=== PATIENT | male | born 1955 | race Caucasian/White ===

== ENCOUNTER 2017-07-04 14:11 | Inpatient (IN) | payer OTHER ==
[~2017-07-04] VITALS: Ht 170.2 cm; Wt 119.0 kg
[~2017-07-04 14:11] MED LIST: ACP20 PO; ALL300 PO; ASPEC81 PO; CLON0.5T3 PO; GLC500 PO; LISI40TA PO; OXGN
[2017-07-04] MEDS ORDERED: NovoLIN-R INSULIN PER UNIT CHARGE IV STA (14:35)
[2017-07-04] MEDS ORDERED: SODIUM CHLORIDE 0.9% 1000ML 1,000 ML, SODIUM CHLORIDE 0.9% 1000ML 1,000 ML IV ONE (14:45)
[2017-07-04 14:50] LABS: URINE APPEARANCE CLEAR (CLEAR); URINE BILIRUBIN NEG (NEG); URINE COLOR YELLOW; URINE NITRITE NEG (NEG); URINE PH 5.5 (4.5-7.5); URINE SPECIFIC GRAVITY 1.029 (1.000-1.030); UROBILINOGEN NEG (NEG); ZZUR CULT IF INDIC CLEAN CATCH NO
[2017-07-04 14:53] LABS: MANUAL MICROSCOPIC REQUIRED? NO; REVIEW REQ? NO
[2017-07-04 15:08] LABS: VEN BLD GAS O2 SATURATION < 60.0 %; VEN BLOOD GAS BASE EXCESS 0.7 mEq/L; VENOUS BLOOD GAS PCO2 47 mmHg (38.0-50.0); VENOUS BLOOD GAS PO2 33 mmHg
[2017-07-04] MEDS ORDERED: PANT40TA PO (15:31)
[2017-07-04] MEDS ORDERED: AMLO-110 PO (15:31)
[2017-07-04] MEDS ORDERED: CHOL100027 PO (15:31)
[2017-07-04] MEDS ORDERED: ALLO300T2 PO (15:31)
[2017-07-04] MEDS ORDERED: METF500T5 PO (15:31)
[2017-07-04] MEDS ORDERED: ATOR-26 PO (15:34)
[2017-07-04] MEDS ORDERED: HYDR25TA4 PO (15:34)
[2017-07-04] MEDS ORDERED: FLUT0.15 NAE (15:34)
[2017-07-04] MEDS ORDERED: IBUP-1050 PO (15:34)
[2017-07-04 15:35] LABS: ALB/GLOB RATIO 0.8 (0.9-2); BETA-HYDROXYBUTYRATE 2.45 mg/dL (0.2-2.81); CALCIUM 9.6 mg/dl (8.5-10.1); MAGNESIUM 1.9 mg/dl (1.8-2.4); POTASSIUM 4.9 mmol/L (3.5-5.1); THYROID STIMULATING HORMONE 1.62 uIu/ml (0.300-4.500)
--- NOTE | 2017-07-04 15:37 | DIAGNOSTIC IMAGING REPORT ---
CHEST 2 VIEWS ROUTINE CLINICAL HISTORY: Left-sided wheezing. Hyperglycemia. COMPARISON STUDY: 07/11/2008 FINDINGS: The cardiac and mediastinal contours are normal. There is no evidence of focal pulmonary consolidation. There is no evidence of failure. No pleural effusions are visualized.[ There is a calcified granuloma within the right upper lobe. There are old left-sided rib deformities. IMPRESSION: No active disease in the chest. Electronically signed by: Yusuf Estrada M.D. 07/04/2017 3:35 PM Dictated Date/Time: 07/04/2017 3:35 PM
[2017-07-04] MEDS ORDERED: INSULIN IV INFUSION PROTOCOL STA (15:56)
[2017-07-04] MEDS ORDERED: SEVERE STRESS LEVEL ONE (16:00)
[2017-07-04] MEDS ORDERED: HHS GOAL RANGE 250-350 mg/dl ONE (16:00)
[2017-07-04] MEDS ORDERED: INSULIN IV INFUSION PROTOCOL SCH (16:15)
--- NOTE | 2017-07-04 16:21 | EMERGENCY ROOM VISIT NOTE ---
History First contact with patient: 14:29 Chief Complaint: HYPERGLYCEMIA Stated Complaint: BLOOD SUGAR OVER 600 Nursing Triage Summary: patient non insulin depentent, taken metfomin but has been drinking and voiding alot. states feels like he has the flu achy tired. has had the shingles shot on the first of the month. blood sugar checked in triage reading hi. at home reading same History of Present Illness The patient is a 62 year old male who presents to the Emergency Room with complaints of generalized body aches, vision changes, and fatigue worsening over the past 3-4 days. The patient has been drinking lots of fluids and urinating excessively. He has a history of diabetes and only takes metformin for this. The patient usually does not check his sugar, but when he went to check it today the glucometer read HIGH. The patient contacted the on-call nurse who referred him to the ER for evaluation. The patient does not report fever or significant recent illness. He did have a shingles immunization about 2 weeks ago in his right arm, and he does have some continued tenderness in this area. The patient has been urinating several times an hour. He does not have other pains. He rates his discomfort an 8/10. He has taken his metformin today. Review of Systems More than 10 systems were reviewed and otherwise negative with the exception of history of present illness. Past Medical/Surgical History History of diabetes Family History No pertinent family history Social History Smoking Status: Former Smoker Marital Status: Current/Historical Medications Scheduled Allopurinol (Zyloprim), 300 MG PO DAILY Amlodipine (Norvasc), 5 MG PO DAILY Atorvastatin (Lipitor), 80 MG PO DAILY Cholecalciferol (Vitamin D 1000 Unit), 1,000 INTER.UNIT PO DAILY Hydrochlorothiazide (Hctz), 25 MG PO DAILY Lisinopril (Zestril), 40 MG PO DAILY Metformin Hcl Er (Glucophage Er), 500 MG PO BID Metoprolol Succ (Toprol Xl) (Toprol-Xl ), 100 MG PO DAILY Pantoprazole (Protonix), 40 MG PO Q2D Scheduled PRN Fluticasone Propionate (Nasal) (Flonase Allergy Relief), 2 SPRAYS MITCHELL DAILY PRN for Nasal Congestion Ibuprofen (Advil), 400 MG PO Q6 PRN for Headache or Pain Physical Exam Vital Signs Date Time Temp Pulse Resp B/P (MAP) Pulse Ox O2 Delivery O2 Flow Rate FiO2 07/04/17 14:19 36.7 98 20 183/92 93 Room Air Physical Exam VITALS: Vitals are noted on the nurse's note and reviewed by myself. Vital signs with elevated blood pressure GENERAL: Well-developed, well-nourished, white male, who is in no acute distress and resting comfortably. Patient is cooperative with the examination. HEAD: Normocephalic atraumatic. EARS: External ear normal. External auditory canals clear, tympanic membranes pearly pittman without erythema or effusion bilaterally. EYES: Pupils equal round and reactive to light and accommodation. Conjunctivae without injection, sclerae without icterus. Extraocular movements intact. NOSE: Patent, turbinates without inflammation or discharge. MOUTH: Mucous membranes moist. Tonsils are not enlarged. Pharynx without erythema, blood, or exudate. Uvula midline. Airway patent. NECK: Supple without nuchal rigidity. No lymphadenopathy. No thyromegaly. Cervical spine is nontender. HEART: Regular rate and rhythm without murmurs gallops or rubs. LUNGS: Mild left-sided wheezing appreciated but otherwise clear ABDOMEN: Positive normal bowel sounds x 4. Soft, nontender, without masses or organomegaly. No guarding or rebound tenderness. Medical Decision & Procedures ER Provider Diagnostic Interpretation: CHEST 2 VIEWS ROUTINE CLINICAL HISTORY: Left-sided wheezing. Hyperglycemia. COMPARISON STUDY: 07/11/2008 FINDINGS: The cardiac and mediastinal contours are normal. There is no evidence of focal pulmonary consolidation. There is no evidence of failure. No pleural effusions are visualized.[ There is a calcified granuloma within the right upper lobe. There are old left-sided rib deformities. IMPRESSION: No active disease in the chest. Laboratory Results 07/04/17 14:49 Test 07/04/17 14:21 07/04/17 14:30 07/04/17 14:49 07/04/17 15:00 Bedside Glucose > 600 mg/dl (70-99) Urine Color YELLOW Urine Appearance CLEAR (CLEAR) Urine pH 5.5 (4.5-7.5) Urine Specific [place] 1.029 (1.000-1.030) Urine Protein NEG (NEG) Urine Glucose (UA) 3+ (NEG) Urine Ketones NEG (NEG) Urine Occult Blood NEG (NEG) Urine Nitrite NEG (NEG) Urine Bilirubin NEG (NEG) Urine Urobilinogen NEG (NEG) Urine Leukocyte Esterase NEG (NEG) Venous Blood pH 7.37 (7.36-7.41) Venous Blood Partial Pressure CO2 47 mmHg (38.0-50.0) Venous Blood Partial Pressure O2 33 mmHg Venous Blood HCO3 27 mmol/L Venous Blood Oxygen Saturation < 60.0 % Venous Blood Base Excess 0.7 mEq/L Anion Gap 7.0 mmol/L (3-11) Est Creatinine Clear Calc Drug Dose 48.5 ml/min Estimated GFR () 40.8 Estimated GFR (Non- 35.2 BUN/Creatinine Ratio 20.0 (10-20) Calcium Level 9.6 mg/dl (8.5-10.1) Magnesium Level 1.9 mg/dl (1.8-2.4) Total Bilirubin 0.8 mg/dl (0.2-1) Aspartate Amino Transf (AST/SGOT) 25 U/L (15-37) Alanine Aminotransferase (ALT/SGPT) 34 U/L (12-78) Alkaline Phosphatase 155 U/L (45-117) Total Protein 7.6 gm/dl (6.4-8.2) Albumin 3.3 gm/dl (3.4-5.0) Globulin 4.3 gm/dl (2.5-4.0) Albumin/Globulin Ratio 0.8 (0.9-2) Lipase 567 U/L (73-393) Beta-Hydroxybutyric Acid 2.45 mg/dL (0.2-2.81) Thyroid Stimulating Hormone (TSH) 1.620 uIu/ml (0.300-4.500) Influenza Type A Antigen Neg for Influ A (NEG) Influenza Type B Antigen Neg for Influ B (NEG) Test 07/04/17 15:48 Medications Administered Medications (Trade) Dose Ordered Sig/Андрей Route Start Time Stop Time Status Last Admin Dose Admin Sodium Chloride/ Sodium Chloride 2,000 ml @ 999 mls/hr Q2H1M ONCE IV 07/04/17 14:45 07/04/17 16:45 07/04/17 14:52 999 MLS/HR Insulin Human Regular (novoLIN-R U-100 PER UNIT) 10 units NOW STAT IV 07/04/17 14:35 07/04/17 14:38 DC 07/04/17 14:54 10 UNITS ED Course Physical exam and history were performed. Nursing notes, EMR, and Medication List were personally reviewed. Patient appears to have elevated blood sugar prompting him to come to the ER today. He is not insulin diabetic. Bedside glucose was attempted, however the glucometer here to document number as it read as "HIGH". IV access was established and labs are obtained. The patient was hydrated with 2 L normal saline. He was given 10 g IV insulin. Chest x-ray was performed and urine was collected. The patient's blood work is as above and was reviewed. Of note his sugar is significantly elevated at 855 in the lab. He does not have ketones in his system and he is not acidotic on VBG's. He does have an elevated creatinine at 2.0, which is increased from labs that we have available to us 7 years ago when the level was 0.8. I suspect this is from dehydration. The patient's chest x- ray did not show acute findings. Because of the patient's significantly elevated blood sugar he was started on an insulin drip per protocol. The patient does not appear well for discharge home as he is with significant hyperglycemia and likely dehydration causing acute kidney injury. The case was discussed with the on-call [facility] hospitalist who agreed to evaluate the patient here in the department. Please see their dictation for further patient course, plan, and disposition. The chart was completed utilizing [employer] Speech Voice Recognition Software. Grammatical errors, random word insertions, pronoun errors, and incomplete sentences are an occasional consequence of this system due to software limitations, ambient noise, and hardware issues. Any formal questions or concerns about the content, text, or information contained within the body of this dictation should be directly addressed to the provider for clarification. . Medical Decision Differential diagnosis: Etiologies such as metabolic, infection, hypo/hyperglycemia, electrolyte abnormalities, cardiac sources, intracerebral event, toxicologic, neurologic, as well as others were entertained. Medication Reconcilliation Current Medication List: was personally reviewed by me Blood Pressure Screening Patient's blood pressure: Elevated blood pressure Impression Primary Impression: Hyperglycemia Additional Impressions: Dehydration Acute kidney injury Departure Information Referrals Angel Cool M.D. (PCP) Patient Instructions My [facility] Problem Qualifiers
[2017-07-04] MEDS ORDERED: INSULIN HUMAN REGULAR IV BOLUS 4.5 UNIT in SYRINGE 0 ML IV SCH (16:45)
[2017-07-04] MEDS: INSULIN REGULAR 250 UNITS in SODIUM CHLORIDE 0.9% 250ML 250 ML IV SCH ×3 (16:45→21:26)
[2017-07-04 16:53] LABS: BASO % 0.7 %; BASO ABS # 0.09 K/uL (0-0.2); COMPLETE YES; EOS % 1.3 %; HEMATOCRIT 38.5 % (42-52); IG% 0.5 %; LYMPH % 15.1 %; LYMPH ABS # 2.08 K/uL (1.2-3.4); MEAN CELL VOLUME 85.4 fL (80-100); MEAN CORPUSCULAR HEMOGLOBIN 28.8 pg (25-34); MEAN CORPUSCULAR HGB CONC 33.8 g/dl (32-36); MEAN PLATELET VOLUME 11.3 fL (7.4-10.4); MONO % 7.4 %; PLATELET COUNT 240 K/uL (130-400); RED BLOOD COUNT 4.51 M/uL (4.7-6.1); WHITE BLOOD COUNT 13.77 K/uL (4.8-10.8)
--- NOTE | 2017-07-04 17:11 | History and Physical ---
History & Physical Date & Time of Service: Jul 04, 2017 at 17:11 Chief Complaint: Blood Sugar Over 600 Primary Care Physician: Angel Cool M.D. History of Present Illness Source: patient, clinic records, hospital records 62 year old male with PMH of DM type 2, SHABANA, Obesity, HTN presents to the Emergency Room with complaints of numbness and tingling in the LE, generalized body aches, blurry vision for the last 3 days. Patient said that he has been drinking lots of water and urinating excessively. Pt said that he has been wake up about 4 times in the middle of the night to urinate. He said that He checked his BS and his glucometer read it too high. He contacted the on-call nurse who referred him to the ER for evaluation. he is complaining of right shoulder pain possible related to recent shingles shot about 2 weeks. Glucose on admission 855. Past Medical/Surgical History SHABANA DM Type 2 HTN Obesity Social History Smoking Status: Former Smoker Marital Status: Immunizations History of Influenza Vaccine: Yes Influenza Vaccine Date: Jul 24, 2010 History of Tetanus Vaccine?: Yes Tetanus Immunization Date: May 11, 2008 History of Pneumococcal: No History of Hepatitis B Vaccine: Unknown Multi-Drug Resistant Organisms History of MDRO: No Allergies Coded Allergies: No Known Allergies (Verified , 07/04/17) Home Medications Scheduled Allopurinol (Zyloprim), 300 MG PO DAILY Amlodipine (Norvasc), 5 MG PO DAILY Aspirin (Aspirin EC Low Dose), 1 TAB PO DAILY Atorvastatin (Lipitor), 80 MG PO DAILY Cholecalciferol (Vitamin D 1000 Unit), 1,000 INTER.UNIT PO DAILY Hydrochlorothiazide (Hctz), 25 MG PO DAILY Lisinopril (Zestril), 40 MG PO DAILY Metformin Hcl Er (Glucophage Er), 500 MG PO BID Metoprolol Succ (Toprol Xl) (Toprol-Xl ), 100 MG PO DAILY Pantoprazole (Protonix), 40 MG PO DAILY Scheduled PRN Acetaminophen (Acetaminophen Extra Stren), 2 TAB PO TID PRN for Pain Fluticasone Propionate (Nasal) (Flonase Allergy Relief), 2 SPRAYS MITCHELL DAILY PRN for Nasal Congestion Review of Systems Constitutional: + fatigue, No fever, No chills Eyes: + problem reported (blurry vision) ENT: No hearing loss Respiratory: No cough, No sputum Cardiovascular: No chest pain, No palpitations Abdomen: No pain, No nausea Musculoskeletal: No calf pain Genitourinary - Male: + urinary frequency Neurologic: No memory loss, No paralysis Psychiatric: No substance abuse Endocrine: + fatigue, + excessive thirst, + excessive urination Hematologic / Lymphatic: No night sweats Integumentary: No rash, No itch Physical Exam Vital Signs Date Time Temp Pulse Resp B/P (MAP) Pulse Ox O2 Delivery O2 Flow Rate FiO2 07/04/17 14:19 36.7 98 20 183/92 93 Room Air General Appearance: WD/WN, no apparent distress Head: normocephalic, atraumatic Eyes: PERRL, EOMI ENT: normal ENT inspection Neck: no adenopathy, no JVD Respiratory/Chest: no respiratory distress Cardiovascular: regular rate, rhythm, no JVD Abdomen/GI: normal bowel sounds, non tender, soft Back: no CVA tenderness Extremities/Musculoskelatal: no calf tenderness Neurologic/Psych: no motor/sensory deficits, alert, oriented x 3 Skin: normal color, no rash Diagnostics Laboratory Results Results Past 24 Hours Test 07/04/17 14:21 07/04/17 14:30 07/04/17 14:49 07/04/17 15:00 Range/Units Bedside Glucose > 600 70-99 mg/dl Urine Color YELLOW Urine Appearance CLEAR CLEAR Urine pH 5.5 4.5-7.5 Urine Specific [place] 1.029 1.000-1.030 Urine Protein NEG NEG Urine Glucose (UA) 3+ NEG Urine Ketones NEG NEG Urine Occult Blood NEG NEG Urine Nitrite NEG NEG Urine Bilirubin NEG NEG Urine Urobilinogen NEG NEG Urine Leukocyte Esterase NEG NEG Venous Blood pH 7.37 7.36-7.41 Venous Blood Partial Pressure CO2 47 38.0-50.0 mmHg Venous Blood Partial Pressure O2 33 mmHg Venous Blood HCO3 27 mmol/L Venous Blood Oxygen Saturation < 60.0 % Venous Blood Base Excess 0.7 mEq/L Sodium Level 121 136-145 mmol/L Potassium Level 4.9 3.5-5.1 mmol/L Chloride Level 84 98-107 mmol/L Carbon Dioxide Level 26 21-32 mmol/L Anion Gap 7.0 3-11 mmol/L Blood Urea Nitrogen 40 7-18 mg/dl Creatinine 2.00 0.60-1.40 mg/dl Est Creatinine Clear Calc Drug Dose 48.5 ml/min Estimated GFR () 40.8 Estimated GFR (Non- 35.2 BUN/Creatinine Ratio 20.0 10-20 Random Glucose 855 70-99 mg/dl Calcium Level 9.6 8.5-10.1 mg/dl Magnesium Level 1.9 1.8-2.4 mg/dl Total Bilirubin 0.8 0.2-1 mg/dl Aspartate Amino Transf (AST/SGOT) 25 15-37 U/L Alanine Aminotransferase (ALT/SGPT) 34 12-78 U/L Alkaline Phosphatase 155 45-117 U/L Total Protein 7.6 6.4-8.2 gm/dl Albumin 3.3 3.4-5.0 gm/dl Globulin 4.3 2.5-4.0 gm/dl Albumin/Globulin Ratio 0.8 0.9-2 Lipase 567 73-393 U/L Beta-Hydroxybutyric Acid 2.45 0.2-2.81 mg/dL Thyroid Stimulating Hormone (TSH) 1.620 0.300-4.500 uIu/ml Influenza Type A Antigen Neg for Influ A NEG Influenza Type B Antigen Neg for Influ B NEG Test 07/04/17 16:23 07/04/17 16:58 Range/Units White Blood Count 13.77 4.8-10.8 K/uL Red Blood Count 4.51 4.7-6.1 M/uL Hemoglobin 13.0 14.0-18.0 g/dL Hematocrit 38.5 42-52 % Mean Corpuscular Volume 85.4 80-100 fL Mean Corpuscular Hemoglobin 28.8 25-34 pg Mean Corpuscular Hemoglobin Concent 33.8 32-36 g/dl Platelet Count 240 130-400 K/uL Mean Platelet Volume 11.3 7.4-10.4 fL Neutrophils (%) (Auto) 75.0 % Lymphocytes (%) (Auto) 15.1 % Monocytes (%) (Auto) 7.4 % Eosinophils (%) (Auto) 1.3 % Basophils (%) (Auto) 0.7 % Neutrophils # (Auto) 10.33 1.4-6.5 K/uL Lymphocytes # (Auto) 2.08 1.2-3.4 K/uL Monocytes # (Auto) 1.02 0.11-0.59 K/uL Eosinophils # (Auto) 0.18 0-0.5 K/uL Basophils # (Auto) 0.09 0-0.2 K/uL RDW Standard Deviation 44.4 36.4-46.3 fL RDW Coefficient of Variation 14.4 11.5-14.5 % Immature Granulocyte % (Auto) 0.5 % Immature Granulocyte # (Auto) 0.07 0.00-0.02 K/uL Diagnostic Radiology CHEST 2 VIEWS ROUTINE CLINICAL HISTORY: Left-sided wheezing. Hyperglycemia. COMPARISON STUDY: 07/11/2008 FINDINGS: The cardiac and mediastinal contours are normal. There is no evidence of focal pulmonary consolidation. There is no evidence of failure. No pleural effusions are visualized.[ There is a calcified granuloma within the right upper lobe. There are old left-sided rib deformities. IMPRESSION: No active disease in the chest. Electronically signed by: Yusuf Estrada M.D. 07/04/2017 3:35 PM Dictated Date/Time: 07/04/2017 3:35 PM Impression Assessment and Plan Hyperglycemia Hyperosmolar Non Ketotic Coma Present with polyuria and polydipsia for the last 3 days Glucose on BMP 855 normal anion gap Started on insulin drip Received 2L NS Continue Insulin drip Pharmacy consulted for glycemic control Check BMP in 6 hrs Monitor BS Check Hba1c in am Metformin on hold Diabetic education consult Hyponatremia Secondary to hyperglycemia Na on admission 121 Corrected Na 139 Continue monitor BMP Acute kidney injury Secondary to dehydration Continue IVF Will hold lisinopril and HCTZ Monitor BMP Morbid Obesity Counseling on diet and exercise Elevated Lipase Possible related to dehydration Asymptomatic SHABANA Has not been using his CPAP machine because he cannot tolerate the mask Need to follow up Gout Continue allopurinol DVT px Heparin subq CODE STATUS FULL CODE Level of Care Med/Surg Resuscitation Status FULL RESUSCITATION VTE Prophylaxis VTE Risk Assessment Done? Y/N: Yes Risk Level: Moderate Given or contraindicated: Unfractionated heparin SQ
[2017-07-04] MEDS ORDERED: ONDANSETRON INJ 2 MG/ML 2 ML VIAL IV PRN (17:15)
[2017-07-04] MEDS ORDERED: ASPEC81 PO (17:16)
[2017-07-04] MEDS ORDERED: ACET-1222 PO (17:16)
[2017-07-04] MEDS ORDERED: NURSING VERBAL MED ORDER ONE (17:18)
[2017-07-04 17:55] LABS: BETA-HYDROXYBUTYRATE 1.99 mg/dL (0.2-2.81)
[2017-07-04 18:08] VITALS: O2SAT 94; BMI 41.1
[2017-07-04] MEDS: INSULIN ASPART 100 UNITS/ML 3 ML PEN SC SCH ×2 (19:00→22:00)
[2017-07-04] MEDS ORDERED: SODIUM CHLORIDE 0.9% 1000ML 1,000 ML IV SCH (19:00)
[2017-07-04] MEDS ORDERED: PHARMACY GLYCEMIC MGMT CONSULT PRN (19:14)
[2017-07-04] MEDS: SODIUM CHLORIDE 0.9% 1000ML 1,000 ML IV SCH (19:15)
[2017-07-04] MEDS ORDERED: GLUCOSE 10 TABS/TUBE PO PRN (19:45)
[2017-07-04] MEDS ORDERED: GLUCAGON FOR INJ 1 MG VIAL SQ PRN (19:45)
[2017-07-04] MEDS ORDERED: GLUCOSE 40% GEL 15 GM TUBE PO PRN (19:45)
[2017-07-04] MEDS ORDERED: DEXTROSE 50% 50 ML SYR IV PRN (19:45)
[2017-07-04 20:06] LABS: PARTIAL THROMBOPLASTIN RATIO 1.1; PROTHROMBIN TIME (PATIENT) 10.7 SECONDS (9.0-12.0)
[2017-07-04 22:15] LABS: BUN/CREATININE RATIO 25.2 (10-20); CALCIUM 9.2 mg/dl (8.5-10.1); CREATININE 1.4 mg/dl (0.60-1.40)
[2017-07-04] MEDS: HEPARIN SOD 5000 UNIT/0.5 ML CARP SQ SCH (22:16)
[2017-07-04] MEDS ORDERED: METO1TAB69 PO (22:17)
[2017-07-04 22:28] LABS: BETA-HYDROXYBUTYRATE 1.37 mg/dL (0.2-2.81)
[2017-07-04 22:33] LABS: POTASSIUM 3.7 mmol/L (3.5-5.1)
[2017-07-04] MEDS ORDERED: TRAMADOL HCL 50 MG TAB PO PRN (23:00)
[2017-07-04] MEDS ORDERED: ACETAMINOPHEN 325 MG TAB PO PRN (23:00)
[2017-07-04] MEDS ORDERED: MoRPHine SULFATE 4 MG/ML 1 ML CARP\\VIAL IV PRN (23:00)
[2017-07-05] VITALS: BP 125/69; PULSE 83; TEMP 36.5; O2SAT 94
[2017-07-05] MEDS: IBUPROFEN 200 MG TAB PO PRN (00:20)
[2017-07-05] MEDS: SODIUM CHLORIDE 0.9% 1000ML 1,000 ML IV SCH (04:05)
[2017-07-05] MEDS: HEPARIN SOD 5000 UNIT/0.5 ML CARP SQ SCH ×3 (06:50→21:03)
[2017-07-05] MEDS ORDERED: GLUCAGON FOR INJ 1 MG VIAL SQ PRN (07:45)
[2017-07-05] MEDS ORDERED: GLUCOSE 10 TABS/TUBE PO PRN (07:45)
[2017-07-05] MEDS ORDERED: DEXTROSE 50% 50 ML SYR IV PRN (07:45)
[2017-07-05] MEDS ORDERED: GLUCOSE 40% GEL 15 GM TUBE PO PRN (07:45)
[2017-07-05] MEDS: METOPROLOL SUCC 50MG EXT REL TAB PO SCH (07:49)
[2017-07-05] MEDS: ALLOPURINOL 300 MG TAB PO SCH (07:50)
[2017-07-05] MEDS: AMLODIPINE BESYLATE 5 MG TAB PO SCH (07:50)
[2017-07-05] MEDS: ASPIRIN 81 MG ECTAB PO SCH (07:50)
[2017-07-05] MEDS: PANTOprazole SOD 40 MG TAB PO SCH (07:50)
[2017-07-05] MEDS: ATORVASTATIN 40 MG TAB PO SCH (07:50)
[2017-07-05] MEDS: CHOLECALCIFEROL 1000 INTER.UNIT TAB PO SCH (07:51)
[2017-07-05] MEDS: INSULIN ASPART 100 UNITS/ML 3 ML PEN SC SCH ×4 (08:12→21:02)
[2017-07-05 08:16] LABS: MEAN CELL VOLUME 83.9 fL (80-100); MEAN CORPUSCULAR HEMOGLOBIN 29.4 pg (25-34); MEAN PLATELET VOLUME 10.9 fL (7.4-10.4); PLATELET COUNT 226 K/uL (130-400); RED BLOOD COUNT 4.53 M/uL (4.7-6.1); WHITE BLOOD COUNT 11.25 K/uL (4.8-10.8)
[2017-07-05 08:18] VITALS: BP 147/75; PULSE 73; TEMP 36.5; O2SAT 91
[2017-07-05 08:51] LABS: BUN/CREATININE RATIO 23.6 (10-20); CALCIUM 8.7 mg/dl (8.5-10.1); CREATININE 1.1 mg/dl (0.60-1.40); POTASSIUM 3.3 mmol/L (3.5-5.1)
[2017-07-05 08:53] LABS: ALB/GLOB RATIO 0.8 (0.9-2)
[2017-07-05] MEDS ORDERED: INSULIN GLARGINE SOLOSTAR 100 UNITS/ML 3 ML PEN SC ONE (09:45)
[2017-07-05] MEDS: INSULIN REGULAR 250 UNITS in SODIUM CHLORIDE 0.9% 250ML 250 ML IV SCH ×2 (09:52→12:57)
[2017-07-05] MEDS: NSS + 20MEQ KCL 1000ML 1,000 ML IV SCH ×2 (09:54→19:40)
--- NOTE | 2017-07-05 10:44 | Pharmacy Progress Note ---
Glycemic Control Intl Consult Date of Service Jul 05, 2017. Scope Glycemic Pharmacist consulted by Dr Rg on 07/04/17 for glycemic control and to write orders per [facility] inpatient glycemic control protocol Objective Weight (Kilograms): 119.000 Accuchecks BSG (last 24hrs): Test 07/04/17 14:21 07/04/17 14:49 07/04/17 16:58 07/04/17 17:25 Bedside Glucose > 600 mg/dl (70-99) 564 mg/dl (70-99) Random Glucose 855 mg/dl (70-99) 701 mg/dl (70-99) Test 07/04/17 18:22 07/04/17 19:25 07/04/17 20:23 07/04/17 21:20 Bedside Glucose 498 mg/dl (70-99) 522 mg/dl (70-99) 425 mg/dl (70-99) 335 mg/dl (70-99) Test 07/04/17 21:23 07/04/17 22:26 07/04/17 23:24 07/05/17 00:27 Random Glucose 354 mg/dl (70-99) Bedside Glucose 286 mg/dl (70-99) 270 mg/dl (70-99) 211 mg/dl (70-99) Test 07/05/17 00:54 07/05/17 01:10 07/05/17 01:34 07/05/17 02:31 Bedside Glucose 222 mg/dl (70-99) 219 mg/dl (70-99) 242 mg/dl (70-99) 220 mg/dl (70-99) Test 07/05/17 03:28 07/05/17 04:36 07/05/17 06:31 07/05/17 07:29 Bedside Glucose 229 mg/dl (70-99) 199 mg/dl (70-99) 181 mg/dl (70-99) Random Glucose 166 mg/dl (70-99) Test 07/05/17 07:46 07/05/17 09:45 Bedside Glucose 178 mg/dl (70-99) 264 mg/dl (70-99) Laboratory Data (last 24hrs) Test 07/04/17 14:49 07/04/17 16:23 07/04/17 21:23 07/05/17 07:29 Anion Gap 7.0 mmol/L 10.0 mmol/L 8.0 mmol/L BUN/Creatinine Ratio 20.0 25.2 23.6 Blood Urea Nitrogen 40 mg/dl 35 mg/dl 26 mg/dl Creatinine 2.00 mg/dl 1.40 mg/dl 1.10 mg/dl Potassium Level 4.9 mmol/L 3.7 mmol/L 3.3 mmol/L Sodium Level 121 mmol/L 132 mmol/L 136 mmol/L White Blood Count 13.77 K/uL 11.25 K/uL Red Blood Count 4.51 M/uL Hemoglobin 13.0 g/dL Hematocrit 38.5 % Mean Corpuscular Volume 85.4 fL Mean Corpuscular Hemoglobin 28.8 pg Mean Corpuscular Hemoglobin Concent 33.8 g/dl Platelet Count 240 K/uL Mean Platelet Volume 11.3 fL Neutrophils (%) (Auto) 75.0 % Lymphocytes (%) (Auto) 15.1 % Monocytes (%) (Auto) 7.4 % Eosinophils (%) (Auto) 1.3 % Basophils (%) (Auto) 0.7 % Neutrophils # (Auto) 10.33 K/uL Lymphocytes # (Auto) 2.08 K/uL Monocytes # (Auto) 1.02 K/uL Eosinophils # (Auto) 0.18 K/uL Basophils # (Auto) 0.09 K/uL HbA1c Test 07/05/17 07:29 Recent Pertinent Medications Outpatient Anti-diabetic Regimen: * Metformin 500mg PO BID * A1c = 9.1 % 06/19/17, updated A1c for today pending The patient is currently receiving: * IV insulin infusion per severe stress protocol * Goal Range 150 - 250 mg/dl Risk Factors for Insulin Resistance: * Diet: Type 2 DM Assessment & Plan ASSESSMENT: * 62 year old type 2 diabetic, uncontrolled, admitted with [facility] and started on insulin drip last night * Pt ready to be transitioned to basal bolus therapy * Pt will require insulin as outpatient, per discussion with nurse, pt is open to starting insulin. Pt states he was on insulin in the past and that his uses insulin pens. * I will begin pt on insulin pens, Lantus, to overlap with insulin drip x 6 hours and CF and CR with Novolog based on pt wt * BSGs should continue to improve with hydration, SCr 2.0mg/dl yesterday down to 1.1mg/dl today * IV fluids changed to increase rate and add potassium * ADA & AACE recommend a goal blood sugar range 140-180 mg/dl for the majority of critically ill & non-critically ill patients. However, more stringent targets may be selected in individual cases. Will begin with this range for patient's A1c. PLAN FOR INPATIENT GLYCEMIC CONTROL: * Continue IV insulin infusion per severe stress protocol til 1600 today ( overlap with first dose of Lantus x 6 hours) * CHANGE: Goal Range 140 - 180 mg/dl * Holding outpatient oral diabetes medications * Basal insulin with LANTUS 50 units SQ x 1 now then * Lantus SQ HS (in anticipation to send pt home on Lantus, will try to give only once daily at bedtime) * 0 units for BSG < 110mg/dl * 20 units for BSG 110-180mg/dl * 30 units for BSG > 180mg/dl * Correctional Insulin with NOVOLOG per scale ACHS or Q6hrs while NPO and at 0000 and 0400 overnight * Goal Range: Low 140 mg/dL - High 180 mg/dL * Correction Factor: 25 mg/dL/unit * Nutritional / Prandial insulin per carb ratio of 1 unit per 8 grams CHO consumed DISCHARGE RECOMMENDATIONS: * Begin Lantus SQ HS - dose to be determined over the next few doses/days * Continue Metformin 500mg po BID * Please note that the plan above was derived based on current level of insulin resistance and hospital stress. These recommendations are appropriate for inpatient admission only. Plan of care upon discharge will need to be reassessed to avoid potential outpatient hypo/hyperglycemia. Thank you.
--- NOTE | 2017-07-05 13:51 | Progress Note ---
Medicine Progress Note Date & Time of Visit: Jul 05, 2017 at 13:45. Subjective Pt was seen and examined Lying in bed with no distress with friend at bedside Pt said that he feels fine he said that his blurry vision seems to improve denies any chest pain, palpitation, dizziness and SOB Objective Last 8 Hrs Date Time Temp Pulse Resp B/P (MAP) Pulse Ox O2 Delivery O2 Flow Rate FiO2 07/05/17 08:18 36.5 73 20 147/75 (99) 91 Room Air 07/05/17 07:23 Room Air Physical Exam: General- No acute distress Head- atraumatic Eyes- PERRL, EOMI ENT- oropharynx clear Neck- supple, no JVD Lungs- clear to auscultation Heart- regular rhythm; no murmur Abdomen- normal bowel sounds Extremities- no calf tenderness Neuro- alert, oriented x 3; PERRL, EOMI Skin- warm & dry Laboratory Results: Last 24 Hours Test 07/04/17 14:21 07/04/17 14:30 07/04/17 14:49 07/04/17 15:00 Bedside Glucose > 600 mg/dl Urine Color YELLOW Urine Appearance CLEAR Urine pH 5.5 Urine Specific [place] 1.029 Urine Protein NEG Urine Glucose (UA) 3+ Urine Ketones NEG Urine Occult Blood NEG Urine Nitrite NEG Urine Bilirubin NEG Urine Urobilinogen NEG Urine Leukocyte Esterase NEG Prothrombin Time 10.7 SECONDS Prothromb Time International Ratio 1.0 Activated Partial Thromboplast Time 28.4 SECONDS Partial Thromboplastin Ratio 1.1 Venous Blood pH 7.37 Venous Blood Partial Pressure CO2 47 mmHg Venous Blood Partial Pressure O2 33 mmHg Venous Blood HCO3 27 mmol/L Venous Blood Oxygen Saturation < 60.0 % Venous Blood Base Excess 0.7 mEq/L Sodium Level 121 mmol/L Potassium Level 4.9 mmol/L Chloride Level 84 mmol/L Carbon Dioxide Level 26 mmol/L Anion Gap 7.0 mmol/L Blood Urea Nitrogen 40 mg/dl Creatinine 2.00 mg/dl Est Creatinine Clear Calc Drug Dose 48.5 ml/min Estimated GFR () 40.8 Estimated GFR (Non- 35.2 BUN/Creatinine Ratio 20.0 Random Glucose 855 mg/dl Calcium Level 9.6 mg/dl Magnesium Level 1.9 mg/dl Total Bilirubin 0.8 mg/dl Aspartate Amino Transf (AST/SGOT) 25 U/L Alanine Aminotransferase (ALT/SGPT) 34 U/L Alkaline Phosphatase 155 U/L Total Protein 7.6 gm/dl Albumin 3.3 gm/dl Globulin 4.3 gm/dl Albumin/Globulin Ratio 0.8 Lipase 567 U/L Beta-Hydroxybutyric Acid 2.45 mg/dL Thyroid Stimulating Hormone (TSH) 1.620 uIu/ml Influenza Type A Antigen Neg for Influ A Influenza Type B Antigen Neg for Influ B Test 07/04/17 16:23 07/04/17 16:58 07/04/17 17:25 07/04/17 18:22 White Blood Count 13.77 K/uL Red Blood Count 4.51 M/uL Hemoglobin 13.0 g/dL Hematocrit 38.5 % Mean Corpuscular Volume 85.4 fL Mean Corpuscular Hemoglobin 28.8 pg Mean Corpuscular Hemoglobin Concent 33.8 g/dl Platelet Count 240 K/uL Mean Platelet Volume 11.3 fL Neutrophils (%) (Auto) 75.0 % Lymphocytes (%) (Auto) 15.1 % Monocytes (%) (Auto) 7.4 % Eosinophils (%) (Auto) 1.3 % Basophils (%) (Auto) 0.7 % Neutrophils # (Auto) 10.33 K/uL Lymphocytes # (Auto) 2.08 K/uL Monocytes # (Auto) 1.02 K/uL Eosinophils # (Auto) 0.18 K/uL Basophils # (Auto) 0.09 K/uL RDW Standard Deviation 44.4 fL RDW Coefficient of Variation 14.4 % Immature Granulocyte % (Auto) 0.5 % Immature Granulocyte # (Auto) 0.07 K/uL Random Glucose 701 mg/dl Beta-Hydroxybutyric Acid 1.99 mg/dL Bedside Glucose 564 mg/dl 498 mg/dl Test 07/04/17 19:25 07/04/17 20:23 07/04/17 21:20 07/04/17 21:23 Bedside Glucose 522 mg/dl 425 mg/dl 335 mg/dl Sodium Level 132 mmol/L Potassium Level 3.7 mmol/L Chloride Level 97 mmol/L Carbon Dioxide Level 25 mmol/L Anion Gap 10.0 mmol/L Blood Urea Nitrogen 35 mg/dl Creatinine 1.40 mg/dl Est Creatinine Clear Calc Drug Dose 69.3 ml/min Estimated GFR () 62.8 Estimated GFR (Non- 54.2 BUN/Creatinine Ratio 25.2 Random Glucose 354 mg/dl Calcium Level 9.2 mg/dl Beta-Hydroxybutyric Acid 1.37 mg/dL Test 07/04/17 22:26 07/04/17 23:24 07/05/17 00:27 07/05/17 00:54 Bedside Glucose 286 mg/dl 270 mg/dl 211 mg/dl 222 mg/dl Test 07/05/17 01:10 07/05/17 01:34 07/05/17 02:31 07/05/17 03:28 Bedside Glucose 219 mg/dl 242 mg/dl 220 mg/dl 229 mg/dl Test 07/05/17 04:36 07/05/17 06:31 07/05/17 07:29 07/05/17 07:46 Bedside Glucose 199 mg/dl 181 mg/dl 178 mg/dl White Blood Count 11.25 K/uL Red Blood Count 4.53 M/uL Hemoglobin 13.3 g/dL Hematocrit 38.0 % Mean Corpuscular Volume 83.9 fL Mean Corpuscular Hemoglobin 29.4 pg Mean Corpuscular Hemoglobin Concent 35.0 g/dl RDW Standard Deviation 43.6 fL RDW Coefficient of Variation 14.3 % Platelet Count 226 K/uL Mean Platelet Volume 10.9 fL Sodium Level 136 mmol/L Potassium Level 3.3 mmol/L Chloride Level 102 mmol/L Carbon Dioxide Level 26 mmol/L Anion Gap 8.0 mmol/L Blood Urea Nitrogen 26 mg/dl Creatinine 1.10 mg/dl Est Creatinine Clear Calc Drug Dose 88.2 ml/min Estimated GFR () 84.1 Estimated GFR (Non- 72.6 BUN/Creatinine Ratio 23.6 Random Glucose 166 mg/dl Calcium Level 8.7 mg/dl Total Bilirubin 0.9 mg/dl Aspartate Amino Transf (AST/SGOT) 31 U/L Alanine Aminotransferase (ALT/SGPT) 31 U/L Alkaline Phosphatase 113 U/L Total Protein 6.9 gm/dl Albumin 3.1 gm/dl Globulin 3.8 gm/dl Albumin/Globulin Ratio 0.8 Test 07/05/17 09:45 07/05/17 11:00 07/05/17 11:52 07/05/17 12:53 Bedside Glucose 264 mg/dl 238 mg/dl 204 mg/dl 249 mg/dl Assessment & Plan Hyperglycemia Hyperosmolar Non Ketotic Coma Present with polyuria and polydipsia for the last 3 days Glucose on admission 855 normal anion gap On insulin drip Continue IVF Pharmacy consulted for glycemic control Last hba1c 9.1 on 07/05 Metformin on hold Diabetic education consult Will start on lantus Hyponatremia Secondary to hyperglycemia Na on admission 121 Continue monitor BMP Resolved Acute kidney injury Secondary to dehydration creatine 2 on admission back to normal Continue IVF Continue holding lisinopril and HCTZ resolved Morbid Obesity Counseling on diet and exercise Elevated Lipase Possible related to dehydration Asymptomatic SHABANA Has not been using his CPAP machine because he cannot tolerate the mask Need to follow up Gout Continue allopurinol DVT px Heparin subq CODE STATUS FULL CODE Current Inpatient Medications: Current Inpatient Medications Medications (Trade) Dose Ordered Sig/Андрей Route Start Time Stop Time Status Last Admin Dose Admin Insulin Aspart (novoLOG ASPART) SLIDING SCALE [facility] 07/04/17 19:00 07/05/17 16:00 07/05/17 12:05 10 UNITS Insulin Human Regular 250 units/ Sodium Chloride 252.5 ml @ 0 mls/hr DAILY@1130 IV 07/04/17 16:45 07/05/17 16:00 07/05/17 12:57 8.8 MLS/HR Heparin Sodium (Porcine) (Heparin Sq 5000 Unit/0.5ml) 5,000 unit Q8 SQ 07/04/17 22:00 08/03/17 21:59 07/05/17 12:57 5,000 UNIT Ondansetron HCl (Zofran Inj) 4 mg Q6H PRN IV 07/04/17 17:15 08/03/17 17:14 Miscellaneous Information (Consult Glycemic Management Pharmacy) 1 ea UD PRN N/A 07/04/17 19:14 08/03/17 19:13 Allopurinol (Zyloprim Tab) 300 mg DAILY PO 07/05/17 09:00 08/04/17 08:59 07/05/17 07:50 300 MG Amlodipine Besylate (Norvasc Tab) 5 mg DAILY PO 07/05/17 09:00 08/04/17 08:59 07/05/17 07:50 5 MG Aspirin (Ecotrin Tab) 81 mg DAILY PO 07/05/17 09:00 08/04/17 08:59 07/05/17 07:50 81 MG Atorvastatin Calcium (Lipitor Tab) 80 mg DAILY PO 07/05/17 09:00 08/04/17 08:59 07/05/17 07:50 80 MG Cholecalciferol (Vitamin D Tab) 1,000 inter.unit DAILY PO 07/05/17 09:00 08/04/17 08:59 07/05/17 07:51 1,000 INTER.UNIT Metoprolol Succinate (Toprol Xl Tab) 100 mg DAILY PO 07/05/17 09:00 08/04/17 08:59 07/05/17 07:49 100 MG Pantoprazole Sodium (Protonix Tab) 40 mg DAILY PO 07/05/17 09:00 08/04/17 08:59 07/05/17 07:50 40 MG Glucose (Glucose 40% Gel) 15-30 GRAMS 15 GRAMS... UD PRN PO 07/04/17 19:45 08/03/17 19:44 Glucose (Glucose Chew Tab) 4-8 Tablets 4 Tabl... UD PRN PO 07/04/17 19:45 08/03/17 19:44 Dextrose (Dextrose 50% 50ML Syringe) 25-50ML OF 50% DW IV FOR... UD PRN IV 07/04/17 19:45 08/03/17 19:44 Glucagon (Glucagon Inj) 1 mg UD PRN SQ 07/04/17 19:45 08/03/17 19:44 Acetaminophen (Tylenol Tab) 650 mg Q6H PRN PO 07/04/17 23:00 08/03/17 22:59 Tramadol HCl (Ultram Tab) not relieved ... Q6H PRN PO 07/04/17 23:00 08/03/17 22:59 Ibuprofen (Advil Tab) 400 mg Q6H PRN PO 07/04/17 23:00 08/03/17 22:59 07/05/17 00:20 400 MG Morphine Sulfate (MoRPHine SULFATE INJ) 4 mg Q3H PRN IV 07/04/17 23:00 07/18/17 22:59 Insulin Aspart (novoLOG ASPART) SLIDING SCALE If C... ACHS SC 07/05/17 16:30 08/04/17 16:29 Potassium Chloride/Sodium Chloride 1,000 ml @ 150 mls/hr Q6H40M IV 07/05/17 10:00 08/04/17 09:59 07/05/17 09:54 150 MLS/HR Insulin Glargine (Lantus Solostar Pen) HS SC 07/05/17 21:00 08/04/17 20:59 Insulin Aspart (novoLOG ASPART) SLIDING SCALE If C... 0000,0400 SC 07/06/17 00:00 07/06/17 04:01
[2017-07-05 15:18] VITALS: BP 162/88; PULSE 81; TEMP 36.5; O2SAT 93
[2017-07-05 16:00] VITALS: O2SAT 93
[2017-07-05] MEDS ORDERED: INSULIN GLARGINE SOLOSTAR 100 UNITS/ML 3 ML PEN SC SCH (21:00)
[2017-07-06] VITALS: BP 152/89; PULSE 83; TEMP 36.5; O2SAT 96
[2017-07-06] MEDS: INSULIN ASPART 100 UNITS/ML 3 ML PEN SC SCH ×6 (00:12→20:52)
[2017-07-06] MEDS: NSS + 20MEQ KCL 1000ML 1,000 ML IV SCH ×3 (00:12→12:41)
[2017-07-06] MEDS: HEPARIN SOD 5000 UNIT/0.5 ML CARP SQ SCH ×3 (06:00→20:52)
[2017-07-06 06:03] LABS: ESTIMATED AVERAGE GLUCOSE 309 mg/dl; HA1C FLAG Normal (Normal)
[2017-07-06 07:12] VITALS: BP 173/75; PULSE 80; TEMP 36.8; O2SAT 96
[2017-07-06 07:55] LABS: HEMATOCRIT 37.9 % (42-52); MEAN CORPUSCULAR HEMOGLOBIN 29.1 pg (25-34); MEAN CORPUSCULAR HGB CONC 34.3 g/dl (32-36); MEAN PLATELET VOLUME 10.6 fL (7.4-10.4); PLATELET COUNT 226 K/uL (130-400); RED BLOOD COUNT 4.46 M/uL (4.7-6.1); WHITE BLOOD COUNT 10.71 K/uL (4.8-10.8)
[2017-07-06] MEDS: ALLOPURINOL 300 MG TAB PO SCH (08:35)
[2017-07-06] MEDS: AMLODIPINE BESYLATE 5 MG TAB PO SCH (08:35)
[2017-07-06] MEDS: ATORVASTATIN 40 MG TAB PO SCH (08:35)
[2017-07-06 08:36] LABS: BUN/CREATININE RATIO 13.3 (10-20); CREATININE 1.1 mg/dl (0.60-1.40); POTASSIUM 4.2 mmol/L (3.5-5.1)
[2017-07-06] MEDS: ASPIRIN 81 MG ECTAB PO SCH (08:36)
[2017-07-06] MEDS: PANTOprazole SOD 40 MG TAB PO SCH (08:36)
[2017-07-06] MEDS: CHOLECALCIFEROL 1000 INTER.UNIT TAB PO SCH (08:36)
[2017-07-06] MEDS: METOPROLOL SUCC 50MG EXT REL TAB PO SCH (08:36)
[2017-07-06 08:37] LABS: CALCIUM 8.7 mg/dl (8.5-10.1)
[2017-07-06] MEDS ORDERED: INSULIN GLARGINE SOLOSTAR 100 UNITS/ML 3 ML PEN SC SCH (09:00)
--- NOTE | 2017-07-06 11:57 | Pharmacy Progress Note ---
Glycemic Control Progress Note Date of Service Jul 06, 2017. Scope Glycemic Pharmacist consulted for glycemic control to write orders per [facility] inpatient glycemic control protocol. Objective Accuchecks BSG (last 24hrs): Test 07/05/17 11:52 07/05/17 12:53 07/05/17 13:51 07/05/17 14:50 Bedside Glucose 204 mg/dl (70-99) 249 mg/dl (70-99) 239 mg/dl (70-99) 217 mg/dl (70-99) Test 07/05/17 15:52 07/05/17 16:33 07/05/17 20:04 07/06/17 00:09 Bedside Glucose 180 mg/dl (70-99) 153 mg/dl (70-99) 234 mg/dl (70-99) 197 mg/dl (70-99) Test 07/06/17 04:21 07/06/17 07:25 07/06/17 07:44 Bedside Glucose 202 mg/dl (70-99) 218 mg/dl (70-99) Random Glucose 235 mg/dl (70-99) HbA1c: Test 07/05/17 07:29 Hemoglobin A1c 12.4 % (4.5-5.6) H Recent Pertinent Medications The patient is currently receiving: * Basal insulin: Lantus 50 units x 1 yesterday mid morning, then 30 units HS * Correctional Insulin: Novolog Correction per scale ACHS Goal Range: Low 140 mg/dL - High 180 mg/dL Correction Factor: 18 mg/dL/unit * Prandial insulin: Per carb ratio of 1 unit per 6 grams CHO consumed * Oral Agents: On hold Outpatient Anti-Diabetic Meds Oral Agents * Metformin 500mg PO BID Assessment & Plan ASSESSMENT: * See progress note from 07/05/17 for more background info, in short: * Pt admitted with HHS, acute kidney injury * Pt was titrated off IV insulin infusion on 07/05 and is currently receiving SQ basal bolus insulin regimen for hyperglycemia secondary to baseline DM ( outpatient regimen on hold). * Over the past 24 hours, pt received 114 units of SQ insulin + IV insulin infusion * 80 units of basal insulin * 34 units of SQ prandial/correctional insulin * BSGs ranging 153 - 264 mg/dl over the past 24hrs * Changes needed to insulin regimen: * AM Fasting BSG is elevated at 218 mg/dl. Continue aggressive basal insulin based on weight and stress of 2-3 for now. Patient is likely in a state of insulin resistance due to severe hyperglycemia on admission, therefore, may need to back off basal insulin on 07/07. * Post-prandial BSGs are elevated therefore need to tighten CF/CR PLAN FOR INPATIENT GLYCEMIC CONTROL: * Oral Agents * Continue to hold outpatient oral diabetes medications. * Basal insulin * Lantus 20-30 units SQ BID * 20 units for BSG less than 110 mg/dL * 25 units for BSG 110-180 mg/dL * 30 units for BSG greater than 180 mg/dL * Bolus insulin - tighten * NovoLog per scale ACHS or Q6hrs while NPO * Goal Range: Low 140 mg/dL - High 180 mg/dL * Correction Factor: 15 mg/dL/unit (12 for lunch) * Nutritional / Prandial insulin per carb ratio of 1 unit per 5 (4 for lunch) grams CHO consumed RECOMMENDATIONS FOR DISCHARGE: * Begin Lantus SQ HS - dose to be determined over the next few doses/days * Continue Metformin 500mg po BID * Please note that the plan above was derived based on current level of insulin resistance and hospital stress. These recommendations are appropriate for inpatient admission only. Plan of care upon discharge will need to be reassessed to avoid potential outpatient hypo/hyperglycemia. Thank you.
[2017-07-06 14:13] VITALS: BMI 41.1
[2017-07-06 15:39] VITALS: BP 146/86; PULSE 79; TEMP 37.1; O2SAT 97
--- NOTE | 2017-07-06 18:43 | Progress Note ---
Medicine Progress Note Date & Time of Visit: Jul 06, 2017 at 13:38. Subjective Pt was seen and examined Sitting at the edge of the bed with no distress with present Pt said that he feels fine denies any chest pain, palpitation, dizziness and sob Objective Last 8 Hrs Date Time Temp Pulse Resp B/P (MAP) Pulse Ox O2 Delivery O2 Flow Rate FiO2 07/06/17 16:00 Room Air 07/06/17 15:39 37.1 79 19 146/86 (106) 97 Room Air Physical Exam: General- No acute distress Head- atraumatic Eyes- PERRL, EOMI ENT- oropharynx clear Neck- supple, no JVD Lungs- clear to auscultation Heart- regular rhythm; no murmur Abdomen- normal bowel sounds Extremities- no calf tenderness Neuro- alert, oriented x 3; PERRL, EOMI Skin- warm & dry Laboratory Results: Last 24 Hours Test 07/05/17 20:04 07/06/17 00:09 07/06/17 04:21 07/06/17 07:25 Bedside Glucose 234 mg/dl 197 mg/dl 202 mg/dl White Blood Count 10.71 K/uL Red Blood Count 4.46 M/uL Hemoglobin 13.0 g/dL Hematocrit 37.9 % Mean Corpuscular Volume 85.0 fL Mean Corpuscular Hemoglobin 29.1 pg Mean Corpuscular Hemoglobin Concent 34.3 g/dl RDW Standard Deviation 45.4 fL RDW Coefficient of Variation 14.6 % Platelet Count 226 K/uL Mean Platelet Volume 10.6 fL Sodium Level 136 mmol/L Potassium Level 4.2 mmol/L Chloride Level 106 mmol/L Carbon Dioxide Level 22 mmol/L Anion Gap 8.0 mmol/L Blood Urea Nitrogen 15 mg/dl Creatinine 1.10 mg/dl Est Creatinine Clear Calc Drug Dose 88.2 ml/min Estimated GFR () 84.1 Estimated GFR (Non- 72.6 BUN/Creatinine Ratio 13.3 Random Glucose 235 mg/dl Calcium Level 8.7 mg/dl Test 07/06/17 07:44 07/06/17 11:16 07/06/17 16:19 Bedside Glucose 218 mg/dl 274 mg/dl 177 mg/dl Assessment & Plan Hyperglycemia Hyperosmolar Non Ketotic Coma Present with polyuria and polydipsia for the last 3 days Glucose on admission 855 normal anion gap On insulin drip Continue IVF Pharmacy consulted for glycemic control Last hba1c 9.1 on 07/05 Metformin on hold Diabetic education consult Will start on lantus 07/06 Recent Hba1c 12.4 (07/05/17) Received lantus 50 units last night Plan to get lantus 30 unit tonight case discussed with pharmacy, uncertain about lantus dose to discharge for now Will have a better idea tomorrow on how much insulin pt will require Diabetic education done plan to discharge on lantus resume metformin on discharge Hyponatremia Secondary to hyperglycemia Na on admission 121 Continue monitor BMP Resolved Acute kidney injury Secondary to dehydration creatine 2 on admission back to normal Continue IVF Continue holding lisinopril and HCTZ resolved Morbid Obesity Counseling on diet and exercise Elevated Lipase Possible related to dehydration Asymptomatic SHABANA Has not been using his CPAP machine because he cannot tolerate the mask Need to follow up Gout Continue allopurinol DVT px Heparin subq CODE STATUS FULL CODE Disposition will discharge home tomorrow Current Inpatient Medications: Current Inpatient Medications Medications (Trade) Dose Ordered Sig/Андрей Route Start Time Stop Time Status Last Admin Dose Admin Heparin Sodium (Porcine) (Heparin Sq 5000 Unit/0.5ml) 5,000 unit Q8 SQ 07/04/17 22:00 08/03/17 21:59 07/05/17 21:03 5,000 UNIT Ondansetron HCl (Zofran Inj) 4 mg Q6H PRN IV 07/04/17 17:15 08/03/17 17:14 Miscellaneous Information (Consult Glycemic Management Pharmacy) 1 ea UD PRN N/A 07/04/17 19:14 08/03/17 19:13 Allopurinol (Zyloprim Tab) 300 mg DAILY PO 07/05/17 09:00 08/04/17 08:59 07/06/17 08:35 300 MG Amlodipine Besylate (Norvasc Tab) 5 mg DAILY PO 07/05/17 09:00 08/04/17 08:59 07/06/17 08:35 5 MG Aspirin (Ecotrin Tab) 81 mg DAILY PO 07/05/17 09:00 08/04/17 08:59 07/06/17 08:36 81 MG Atorvastatin Calcium (Lipitor Tab) 80 mg DAILY PO 07/05/17 09:00 08/04/17 08:59 07/06/17 08:35 80 MG Cholecalciferol (Vitamin D Tab) 1,000 inter.unit DAILY PO 07/05/17 09:00 08/04/17 08:59 07/06/17 08:36 1,000 INTER.UNIT Metoprolol Succinate (Toprol Xl Tab) 100 mg DAILY PO 07/05/17 09:00 08/04/17 08:59 07/06/17 08:36 100 MG Pantoprazole Sodium (Protonix Tab) 40 mg DAILY PO 07/05/17 09:00 08/04/17 08:59 07/06/17 08:36 40 MG Glucose (Glucose 40% Gel) 15-30 GRAMS 15 GRAMS... UD PRN PO 07/04/17 19:45 08/03/17 19:44 Glucose (Glucose Chew Tab) 4-8 Tablets 4 Tabl... UD PRN PO 07/04/17 19:45 08/03/17 19:44 Dextrose (Dextrose 50% 50ML Syringe) 25-50ML OF 50% DW IV FOR... UD PRN IV 07/04/17 19:45 08/03/17 19:44 Glucagon (Glucagon Inj) 1 mg UD PRN SQ 07/04/17 19:45 08/03/17 19:44 Acetaminophen (Tylenol Tab) 650 mg Q6H PRN PO 07/04/17 23:00 08/03/17 22:59 Tramadol HCl (Ultram Tab) not relieved ... Q6H PRN PO 07/04/17 23:00 08/03/17 22:59 Ibuprofen (Advil Tab) 400 mg Q6H PRN PO 07/04/17 23:00 08/03/17 22:59 07/05/17 00:20 400 MG Morphine Sulfate (MoRPHine SULFATE INJ) 4 mg Q3H PRN IV 07/04/17 23:00 07/18/17 22:59 Insulin Aspart (novoLOG ASPART) SLIDING SCALE If C... ACHS SC 07/05/17 16:30 08/04/17 16:29 07/06/17 18:18 13 UNITS Potassium Chloride/Sodium Chloride 1,000 ml @ 80 mls/hr [id number] IV 07/05/17 10:00 08/04/17 09:59 07/06/17 12:41 150 MLS/HR Insulin Glargine (Lantus Solostar Pen) BID SC 07/06/17 21:00 08/05/17 20:59 Insulin Aspart (novoLOG ASPART) SLIDING SCALE If C... 0000,0400 MD 07/07/17 00:00 07/07/17 04:01
[2017-07-06] MEDS: IBUPROFEN 200 MG TAB PO PRN (20:39)
[2017-07-06] MEDS: INSULIN GLARGINE SOLOSTAR 100 UNITS/ML 3 ML PEN SC SCH (20:51)
[2017-07-07 00:27] VITALS: BP 179/88; PULSE 93; TEMP 36.7; O2SAT 96
[2017-07-07] MEDS: INSULIN ASPART 100 UNITS/ML 3 ML PEN SC SCH ×5 (04:54→17:13)
[2017-07-07] MEDS: HEPARIN SOD 5000 UNIT/0.5 ML CARP SQ SCH ×2 (05:32→13:46)
[2017-07-07 07:19] VITALS: BP 156/92; PULSE 65; TEMP 36.4; O2SAT 98
[2017-07-07 07:21] LABS: BUN/CREATININE RATIO 13.6 (10-20); CALCIUM 8.2 mg/dl (8.5-10.1); POTASSIUM 3.9 mmol/L (3.5-5.1)
[2017-07-07] MEDS: ATORVASTATIN 40 MG TAB PO SCH (07:59)
[2017-07-07] MEDS: AMLODIPINE BESYLATE 5 MG TAB PO SCH (07:59)
[2017-07-07] MEDS: METOPROLOL SUCC 50MG EXT REL TAB PO SCH (07:59)
[2017-07-07] MEDS: PANTOprazole SOD 40 MG TAB PO SCH (07:59)
[2017-07-07] MEDS: CHOLECALCIFEROL 1000 INTER.UNIT TAB PO SCH (07:59)
[2017-07-07] MEDS: ALLOPURINOL 300 MG TAB PO SCH (07:59)
[2017-07-07] MEDS: ASPIRIN 81 MG ECTAB PO SCH (07:59)
[2017-07-07] MEDS: INSULIN GLARGINE SOLOSTAR 100 UNITS/ML 3 ML PEN SC SCH (08:06)
[2017-07-07] MEDS ORDERED: HYDROCHLOROTHIAZIDE 25 MG TAB PO SCH (09:00)
[2017-07-07] MEDS ORDERED: LISINOPRIL 40 MG TAB PO SCH (09:00)
--- NOTE | 2017-07-07 10:43 | Pharmacy Progress Note ---
Glycemic Control Progress Note Date of Service Jul 07, 2017. Scope Glycemic Pharmacist consulted for glycemic control to write orders per [facility] inpatient glycemic control protocol. Objective Accuchecks BSG (last 24hrs): Test 07/06/17 11:16 07/06/17 16:19 07/06/17 20:31 07/07/17 00:27 Bedside Glucose 274 mg/dl (70-99) 177 mg/dl (70-99) 188 mg/dl (70-99) 157 mg/dl (70-99) Test 07/07/17 04:49 07/07/17 06:30 07/07/17 07:44 Bedside Glucose 167 mg/dl (70-99) 177 mg/dl (70-99) Random Glucose 171 mg/dl (70-99) HbA1c: Test 07/05/17 07:29 Hemoglobin A1c 12.4 % (4.5-5.6) H Recent Pertinent Medications The patient is currently receiving: * Basal insulin: Lantus 30 units SQ qAM + 25 units SQ qPM * Correctional Insulin: Novolog Correction per scale ACHS Goal Range: Low 140 mg/dL - High 180 mg/dL Correction Factor: 15 mg/dL/unit * Prandial insulin: Per carb ratio of 1 unit per 4 grams CHO consumed * Oral Agents: On hold Outpatient Anti-Diabetic Meds Oral Agents * Metformin 500 mg PO BID Assessment & Plan ASSESSMENT: * See progress note from 07/05/17 for more background info, in short: * Pt admitted with HHS, acute kidney injury - both resolved. Titrated off IV insulin infusion on 07/05 and is currently receiving SQ basal bolus insulin regimen for hyperglycemia secondary to uncontrolled DM. * Over the past 24 hours, pt received 104 units of insulin * 55 units of basal insulin * 49 units of SQ prandial/correctional insulin * BSGs ranging 157 - 274 mg/dl over the past 24hrs * Changes needed to insulin regimen: * AM Fasting BSG = 177 mg/dl. Fasting remains elevated but is greatly improved. Current Lantus dose not yet at steady state. * Post-prandial BSGs are improving. Tighten CF today. Continue overnight checks with coverage and lower goal range to 120-160 mg/dL. I am hesitant to decrease goal range further due to A1c of 12.4% (pt may experience hypoglycemia at a lower threshold). PLAN FOR INPATIENT GLYCEMIC CONTROL: * Oral Agents * Continue to hold outpatient oral diabetes medications. * Basal insulin * Lantus 30 units SQ BID * Bolus insulin * NovoLog per scale ACHS or Q6hrs * Change Goal Range to: Low 120 mg/dL - High 160 mg/dL * Correction Factor: 12 mg/dL/unit * Nutritional / Prandial insulin per carb ratio of 1 unit per 4 grams CHO consumed RECOMMENDATIONS FOR DISCHARGE: * Poor glycemic control evidence by A1c of 12.4 % * Recommend metformin + basal insulin + mealtime insulin or GLP1 for A1 c >10% ( per Vascular Surgery Physician notes, pt agreeable to Lantus plus set doses of Novolog with meals) * Lantus 25 units SQ BID - can transition to once daily dosing as outpatient if desired * Novolog 15 units SQ TID with meals * Continue Metformin 500mg po BID * titrate as tolerated by 500 mg per week to goal of 1000 mg PO BID with meals * Please note that the plan above was derived based on current level of insulin resistance and hospital stress. These recommendations are appropriate for inpatient admission only. Plan of care upon discharge will need to be reassessed to avoid potential outpatient hypo/hyperglycemia. Thank you.
[2017-07-07 13:40] VITALS: Ht 170.2 cm; Wt 119.0 kg
--- NOTE | 2017-07-07 16:46 | Progress Note ---
Medicine Progress Note Date & Time of Visit: Jul 07, 2017 at 12:37. Subjective Pt was seen and examined Sitting in the chair with no distress Pt said that he feels fine Blood sugar seems to improve, but elevated after eating denies any chest pain, palpitation, dizziness and SOB Objective Physical Exam: General- No acute distress Head- atraumatic Eyes- PERRL, EOMI ENT- oropharynx clear Neck- supple, no JVD Lungs- clear to auscultation Heart- regular rhythm; no murmur Abdomen- normal bowel sounds Extremities- no calf tenderness Neuro- alert, oriented x 3; PERRL, EOMI Skin- warm & dry Laboratory Results: Last 24 Hours Test 07/06/17 20:31 07/07/17 00:27 07/07/17 04:49 07/07/17 06:30 Bedside Glucose 188 mg/dl 157 mg/dl 167 mg/dl Sodium Level 141 mmol/L Potassium Level 3.9 mmol/L Chloride Level 110 mmol/L Carbon Dioxide Level 25 mmol/L Anion Gap 6.0 mmol/L Blood Urea Nitrogen 14 mg/dl Creatinine 1.00 mg/dl Est Creatinine Clear Calc Drug Dose 97.0 ml/min Estimated GFR () 94.4 Estimated GFR (Non- 81.4 BUN/Creatinine Ratio 13.6 Random Glucose 171 mg/dl Calcium Level 8.2 mg/dl Test 07/07/17 07:44 07/07/17 11:26 Bedside Glucose 177 mg/dl 262 mg/dl Assessment & Plan Hyperglycemia Hyperosmolar Non Ketotic Coma Present with polyuria and polydipsia for the last 3 days Glucose on admission 855 normal anion gap On insulin drip Continue IVF Pharmacy consulted for glycemic control Last hba1c 9.1 on 07/05 Metformin on hold Diabetic education consult Will start on lantus 07/06 Recent Hba1c 12.4 (07/05/17) Received lantus 50 units last night Plan to get lantus 30 unit tonight case discussed with pharmacy, uncertain about lantus dose to discharge for now Will have a better idea tomorrow on how much insulin pt will require Diabetic education done plan to discharge on lantus resume metformin on discharge 07/07 BS has been running btw 150 to 260 in the last 12hrs Case discussed with Pharmacy that recommended to discharge on lantus 25 unit BID Will also discharge on Novolog 15 unit TID before meals advised pt to monitor BS and bring BS log in his next appt with his PCP Follow up a low carb and limited concentrated sweet Hyponatremia Secondary to hyperglycemia Na on admission 121 Continue monitor BMP Resolved Acute kidney injury Secondary to dehydration creatine 2 on admission back to normal Continue IVF Continue holding lisinopril and HCTZ resolved Morbid Obesity Counseling on diet and exercise Elevated Lipase Possible related to dehydration Asymptomatic SHABANA Has not been using his CPAP machine because he cannot tolerate the mask Need to follow up Gout Continue allopurinol DVT px Heparin subq CODE STATUS FULL CODE Disposition will discharge home today Follow up with PCP Dr. Cool on 07/14 at 11:05 am Consultants: Diabetic education Pharmacy for glycemic mngt Current Inpatient Medications: Current Inpatient Medications Medications (Trade) Dose Ordered Sig/Андрей Route Start Time Stop Time Status Last Admin Dose Admin Heparin Sodium (Porcine) (Heparin Sq 5000 Unit/0.5ml) 5,000 unit Q8 SQ 07/04/17 22:00 08/03/17 21:59 07/05/17 21:03 5,000 UNIT Ondansetron HCl (Zofran Inj) 4 mg Q6H PRN IV 07/04/17 17:15 08/03/17 17:14 Miscellaneous Information (Consult Glycemic Management Pharmacy) 1 ea UD PRN N/A 07/04/17 19:14 08/03/17 19:13 Allopurinol (Zyloprim Tab) 300 mg DAILY PO 07/05/17 09:00 08/04/17 08:59 07/07/17 07:59 300 MG Amlodipine Besylate (Norvasc Tab) 5 mg DAILY PO 07/05/17 09:00 08/04/17 08:59 07/07/17 07:59 5 MG Aspirin (Ecotrin Tab) 81 mg DAILY PO 07/05/17 09:00 08/04/17 08:59 07/07/17 07:59 81 MG Atorvastatin Calcium (Lipitor Tab) 80 mg DAILY PO 07/05/17 09:00 08/04/17 08:59 07/07/17 07:59 80 MG Cholecalciferol (Vitamin D Tab) 1,000 inter.unit DAILY PO 07/05/17 09:00 08/04/17 08:59 07/07/17 07:59 1,000 INTER.UNIT Metoprolol Succinate (Toprol Xl Tab) 100 mg DAILY PO 07/05/17 09:00 08/04/17 08:59 07/07/17 07:59 100 MG Pantoprazole Sodium (Protonix Tab) 40 mg DAILY PO 07/05/17 09:00 08/04/17 08:59 07/07/17 07:59 40 MG Glucose (Glucose 40% Gel) 15-30 GRAMS 15 GRAMS... UD PRN PO 07/04/17 19:45 08/03/17 19:44 Glucose (Glucose Chew Tab) 4-8 Tablets 4 Tabl... UD PRN PO 07/04/17 19:45 08/03/17 19:44 Dextrose (Dextrose 50% 50ML Syringe) 25-50ML OF 50% DW IV FOR... UD PRN IV 07/04/17 19:45 08/03/17 19:44 Glucagon (Glucagon Inj) 1 mg UD PRN SQ 07/04/17 19:45 08/03/17 19:44 Acetaminophen (Tylenol Tab) 650 mg Q6H PRN PO 07/04/17 23:00 08/03/17 22:59 Tramadol HCl (Ultram Tab) not relieved ... Q6H PRN PO 07/04/17 23:00 08/03/17 22:59 Ibuprofen (Advil Tab) 400 mg Q6H PRN PO 07/04/17 23:00 08/03/17 22:59 07/06/17 20:39 400 MG Morphine Sulfate (MoRPHine SULFATE INJ) 4 mg Q3H PRN IV 07/04/17 23:00 07/18/17 22:59 Insulin Aspart (novoLOG ASPART) SLIDING SCALE If C... ACHS AL 07/05/17 16:30 08/04/17 16:29 07/07/17 12:07 15 UNITS Hydrochlorothiazide (Hydrochlorothiazide Tab) 25 mg DAILY PO 07/07/17 09:00 08/06/17 08:59 07/07/17 08:00 25 MG Lisinopril (Zestril Tab) 40 mg DAILY PO 07/07/17 09:00 08/06/17 08:59 07/07/17 07:59 40 MG Insulin Aspart (novoLOG ASPART) SLIDING SCALE If C... 0200 AL 07/08/17 02:00 07/08/17 02:01 Insulin Glargine (Lantus Solostar Pen) 30 units BID SC 07/07/17 21:00 08/06/17 20:59
[2017-07-07] MEDS ORDERED: NVLGIPEN SC ×2 (16:52→17:21)
[2017-07-07] MEDS ORDERED: INSDGIPEN SC (16:52)
--- NOTE | 2017-07-07 17:08 | Discharge Instructions ---
Discharge Instructions Date of Service Jul 07, 2017. Admission Reason for Admission: Hyperglycemic Hyperosmolar Nonketotic Coma Discharge Discharge Diagnosis / Problem: Elevated Blood sugar, uncontrolled Diabetes, Acute kidney injury, HTN Discharge Goals Goal(s): Decrease discomfort, Improve function, Improve disease control Activity Recommendations Activity Limitations: resume your previous activity (as tolerated) . Instructions / Follow-Up Instructions / Follow-Up Follow up with your primary care provider Dr. Cool on 07/14 @ 11:05 Monitor your blood sugar three time a day and bring BS log in your next appointment with his dr. Cool Follow up a healthy diet with low carb and limited concentrated sweet Starting on Lantus 25 units twice a day NovoLog 15 unit Three times a day with meals. (skip dose it if you don't eat or if blood sugar is low) Do not increase your insulin without instructing by your physician Blood sugar goal between 90 to 140 Try to lose weight because that will help your diabetes Check Hba1c in 3 months Monitor your Blood pressure Also follow a low salt diet Current Hospital Diet Patient's current hospital diet: Diabetes Type 2 Diet Discharge Diet Recommended Diet: Diabetes Type 2 Diet Pending Studies Studies pending at discharge: no Laboratory Results Hemoglobin A1c Test 07/05/17 07:29 Range/Units Estimated Average Glucose 309 mg/dl Hemoglobin A1c 12.4 H 4.5-5.6 % Medical Emergencies . Who to Call and When: Medical Emergencies: If at any time you feel your situation is an emergency, please call 911 immediately. . Non-Emergent Contact Non-Emergency issues call your: Primary Care Provider Call Non-Emergent contact if: you have any medication questions . . "Provider Documentation" section prepared by Zoya Rg. . VTE Core Measure Inpt VTE Proph given/why not?: Unfractionated heparin SQ
[2017-07-07 17:15] VITALS: BP 156/92; PULSE 65; TEMP 36.4; O2SAT 98
[2017-07-07] MEDS ORDERED: INSULIN GLARGINE SOLOSTAR 100 UNITS/ML 3 ML PEN SC SCH (21:00)
[2017-07-08] MEDS ORDERED: INSULIN ASPART 100 UNITS/ML 3 ML PEN SC SCH (02:00)
--- NOTE | 2017-07-08 07:32 | Discharge Summary ---
Discharge Summary Date of Service Jul 08, 2017. Discharge Summary Admission Date: Jul 04, 2017 at 17:05 Discharge Date: Jul 07, 2017 Discharge Disposition: Home Principal Diagnosis: Hyperglycemic Hyperosmolar Nonketotic Coma Secondary Diagnoses/Problems: Uncontrolled Diabetes Acute kidney injury HTN Hyponatremia Morbid Obesity SHABANA Elevated Lipase Gout Procedures: [~ rep ct add3]] CHEST 2 VIEWS ROUTINE CLINICAL HISTORY: Left-sided wheezing. Hyperglycemia. COMPARISON STUDY: 07/11/2008 FINDINGS: The cardiac and mediastinal contours are normal. There is no evidence of focal pulmonary consolidation. There is no evidence of failure. No pleural effusions are visualized.[ There is a calcified granuloma within the right upper lobe. There are old left-sided rib deformities. IMPRESSION: No active disease in the chest. Electronically signed by: Yusuf Estrada M.D. 07/04/2017 3:35 PM Dictated Date/Time: 07/04/2017 3:35 PM Consultations: Diabetic education Pharmacy for glycemic mngt Medication Reconciliation New Medications: Insulin Aspart (Novolog Flexpen) 100 Units/Ml Inj 15 UNITS SC TID for 30 Days With meals Insulin Glargine (Lantus Solostar) 100 Unit/Ml Inj 25 UNITS SC BID for 30 Days Continued Medications: Acetaminophen (Acetaminophen Extra Stren) 500 Mg Tab 2 TAB PO TID PRN for Pain Allopurinol (Zyloprim) 300 Mg Tab 300 MG PO DAILY, TAB Amlodipine (Norvasc) 5 Mg Tab 5 MG PO DAILY, TAB Aspirin (Aspirin EC Low Dose) 81 Mg Ectab 1 TAB PO DAILY Atorvastatin (Lipitor) 80 Mg Tab 80 MG PO DAILY, TAB Cholecalciferol (Vitamin D 1000 Unit) 1,000 Unit Cap 1000 INTER.UNIT PO DAILY, CAP Fluticasone Propionate (Nasal) (Flonase Allergy Relief) 50 Mcg/Act Spr 2 SPRAYS MITCHELL DAILY PRN for Nasal Congestion Hydrochlorothiazide (Hctz) 25 Mg Tab 25 MG PO DAILY, TAB Lisinopril (Zestril) 40 Mg Tab 40 MG PO DAILY Metformin Hcl Er (Glucophage Er) 500 Mg Tab 500 MG PO BID, TAB Metoprolol Succ (Toprol Xl) (Toprol-Xl ) 100 Mg Tabcr 100 MG PO DAILY, 0 Refills Pantoprazole (Protonix) 40 Mg Tab 40 MG PO DAILY, #30 TAB Admission Information HPI (per Admitting provider): 62 year old male with PMH of DM type 2, SHABANA, Obesity, HTN presents to the Emergency Room with complaints of numbness and tingling in the LE, generalized body aches, blurry vision for the last 3 days. Patient said that he has been drinking lots of water and urinating excessively. Pt said that he has been wake up about 4 times in the middle of the night to urinate. He said that He checked his BS and his glucometer read it too high. He contacted the on-call nurse who referred him to the ER for evaluation. he is complaining of right shoulder pain possible related to recent shingles shot about 2 weeks. Glucose on admission 855. Physical Exam (per Admitting): General Appearance: WD/WN, no apparent distress Head: normocephalic, atraumatic Eyes: PERRL, EOMI ENT: normal ENT inspection Neck: no adenopathy, no JVD Respiratory/Chest: no respiratory distress Cardiovascular: regular rate, rhythm, no JVD Abdomen/GI: normal bowel sounds, non tender, soft Back: no CVA tenderness Extremities/Musculoskelatal: no calf tenderness Neurologic/Psych: no motor/sensory deficits, alert, oriented x 3 Skin: normal color, no rash Hospital Course Hyperglycemia Hyperosmolar Non Ketotic Coma Present with polyuria and polydipsia for the last 3 days Glucose on admission 855 normal anion gap On insulin drip Continue IVF Pharmacy consulted for glycemic control Last hba1c 9.1 on 07/05 Metformin on hold Diabetic education consult Will start on lantus 07/06 Recent Hba1c 12.4 (07/05/17) Received lantus 50 units last night Plan to get lantus 30 unit tonight case discussed with pharmacy, uncertain about lantus dose to discharge for now Will have a better idea tomorrow on how much insulin pt will require Diabetic education done plan to discharge on lantus resume metformin on discharge 07/07 BS has been running btw 150 to 260 in the last 12hrs Case discussed with Pharmacy that recommended to discharge on lantus 25 unit BID Will also discharge on Novolog 15 unit TID before meals advised pt to monitor BS and bring BS log in his next appt with his PCP Follow up a low carb and limited concentrated sweet Hyponatremia Secondary to hyperglycemia Na on admission 121 Continue monitor BMP Resolved Acute kidney injury Secondary to dehydration creatine 2 on admission back to normal Continue IVF Continue holding lisinopril and HCTZ resolved Morbid Obesity Counseling on diet and exercise Elevated Lipase Possible related to dehydration Asymptomatic SHABANA Has not been using his CPAP machine because he cannot tolerate the mask Need to follow up Gout Continue allopurinol DVT px Heparin subq CODE STATUS FULL CODE Disposition will discharge home today Follow up with PCP Dr. Cool on 07/14 at 11:05 am Total time spent on discharge = 40 minutes This includes examination of the patient, discharge planning, medication reconciliation, and communication with other providers. Discharge Instructions Discharge Instructions Date of Service Jul 07, 2017. Admission Reason for Admission: Hyperglycemic Hyperosmolar Nonketotic Coma Discharge Discharge Diagnosis / Problem: Elevated Blood sugar, uncontrolled Diabetes, Acute kidney injury, HTN Discharge Goals Goal(s): Decrease discomfort, Improve function, Improve disease control Activity Recommendations Activity Limitations: resume your previous activity (as tolerated) . Instructions / Follow-Up Instructions / Follow-Up Follow up with your primary care provider Dr. Cool on 07/14 @ 11:05 Monitor your blood sugar three time a day and bring BS log in your next appointment with his dr. Cool Follow up a healthy diet with low carb and limited concentrated sweet Starting on Lantus 25 units twice a day NovoLog 15 unit Three times a day with meals. (skip dose it if you don't eat or if blood sugar is low) Do not increase your insulin without instructing by your physician Blood sugar goal between 90 to 140 Try to lose weight because that will help your diabetes Check Hba1c in 3 months Monitor your Blood pressure Also follow a low salt diet Script given for needles, test strip and lancets Current Hospital Diet Patient's current hospital diet: Diabetes Type 2 Diet Discharge Diet Recommended Diet: Diabetes Type 2 Diet Pending Studies Studies pending at discharge: no Laboratory Results Hemoglobin A1c Test 07/05/17 07:29 Range/Units Estimated Average Glucose 309 mg/dl Hemoglobin A1c 12.4 H 4.5-5.6 % Medical Emergencies . Who to Call and When: Medical Emergencies: If at any time you feel your situation is an emergency, please call 911 immediately. . Non-Emergent Contact Non-Emergency issues call your: Primary Care Provider Call Non-Emergent contact if: you have any medication questions . . "Provider Documentation" section prepared by Zoya Rg. . VTE Core Measure Inpt VTE Proph given/why not?: Unfractionated heparin SQ Signed: Signed: The status of this report is Draft * If report status is Draft, the document has not been finalized by the responsible provider. Additional Copies To Angel Cool M.D.
== END 2017-07-07 17:42 | disposition home or self-care (01) | DRG 638 ==
LOC: C.EDB 14:12 → C.MS2W 17:05 → ENRESERV 18:12 → C.MS2W 18:50 → UNDOADMIN 18:50
PROVIDERS: ADMIT Internal Medicine; ATTEND Internal Medicine
DX: E11.00 Type 2 diabetes mellitus with hyperosmolarity without nonketotic hyperglycemic-hyperosmolar coma (NKHHC) (principal); E87.1 Hypo-osmolality and hyponatremia; N17.9 Acute kidney failure, unspecified; E11.65 Type 2 diabetes mellitus with hyperglycemia; E86.0 Dehydration; G47.33 Obstructive sleep apnea (adult) (pediatric); M10.9 Gout, unspecified; I10 Essential (primary) hypertension; E66.9 Obesity, unspecified; Z87.891 Personal history of nicotine dependence; Z79.82 Long term (current) use of aspirin